=== PATIENT | male | born 1970 | race Caucasian/White ===

== ENCOUNTER 2016-08-08 22:29 | Emergency (ER) | payer OTHER ==
[2016-08-08] MEDS ORDERED: 0.9 % SODIUM CHLORIDE 1,000 ML IV ONE (22:45)
--- NOTE | 2016-08-08 23:18 | ED Physician Documentation ---
General Adult - HISTORIAN Historian: patient - HPI Stated Complaint: hearing voices, seeing objests Chief Complaint: General Adult Onset: days ago (1) Timing: still present Severity: moderate Further Comments: yes (Pt is a 46 yo male who c/o hearing voices. Pt was discharged from [facility] 2 days ago after admission there for alcohol withdrawal. Pt has not had alcohol for more than 7 days now. Pt reports hearing voices and seeing figures, halucinations. Pt has not had this problem of hearing voices for many years. Voices are mostly mumbling, but sometimes say "you'd be better off ." Pt is on a number of psychiatric meds: cymbalta, tegratol, haldol. Pt also has hx chronic pancreatitis and Diabetes Type 1.) - ROS CONST: no problems EYES/ENT: none CVS/RESP: none GI/: diarrhea, other (chronic abd pain) MS/SKIN/LYMPH: none NEURO/PSYCH: other (hearing voices) - PAST HX Past History: other (Hypothyroidism, Alcoholism, chronic pancreatitis, Depression, DM Type I, Esophagitis, HLD, HTN. Hx psychosis with audio hallucinations.) Allergies/Adverse Reactions: Allergies Allergy/AdvReac Type Severity Reaction Status Date / Time promethazine HCl Allergy Intermediate Hallucinati Verified 08/08/16 22:45 [From Phenergan] ons metoclopramide HCl Allergy Verified 08/08/16 22:45 [From Reglan] morphine Allergy Hives Verified 08/08/16 22:45 tramadol Allergy Anaphylaxis Verified 08/08/16 22:45 Home Medications: Ambulatory Orders Medication Instructions Recorded Insulin Glargine,Hum.rec.anlog 40 unit SQ HS 02/20/16 [Lantus Solostar] Insulin Lispro [Humalog] 7 unit SQ TID 02/20/16 Levothyroxine Sodium [Synthroid] 100 mcg PO D 02/20/16 Pantoprazole Sodium [Protonix] 40 mg PO BID 02/20/16 Lipase/Protease/Amylase [Pancreaze 3 each PO TID 04/30/16 4,[address]] Hydrocodone/Acetaminophen 1 each PO Q6 PRN #30 tablet 05/06/16 [Hydrocodon-Acetaminophen 5-325] Penicillin V Potassium [Pen V K] 500 mg PO QID #40 tablet 05/06/16 - SOCIAL HX Smoking History: cigarettes Alcohol Use: other (no alcohol for > 7 days) - FAMILY HX Family History: No - VITAL SIGNS Vital Signs: Vital Signs Temp Pulse Resp BP Pulse Ox 123 H 16 154/115 92 08/08/16 22:35 08/08/16 22:35 08/08/16 22:35 08/08/16 22:35 - REVIEWED ASSESSMENTS Nursing Assessment Reviewed: Yes Vitals Reviewed: Yes Progress - Progress Progress: U/A - neg UDS - non-negative for Benzodiazepines and for Oxycodone. Zofran 4 mg po Percocet (5/325) 2 tablets in ER Dilaudid 1 mg IM Zofran 4 mg po Dilaudid 0.5 mg IM Attempted to transfer to [facility] hospitalist, Dr. Rao. He said pt should go direct to Psychiatry. D/w Dr. Ludwig, [facility] Psych. He reviewed all the pt's data that we sent and said that pt is more appropiate for Medicine after all. Awaiting call back from medicine. Care transferred to Dr. Mckenzie at 0700. ED Results Lab/Radiology - Orders Orders: ED Orders Category Date Time Status Place Saline Lock/IV Now Care 08/08/16 22:45 Active AMYLASE Routine Lab 08/08/16 Ordered CBC/PLATELET/DIFF Routine Lab 08/08/16 Ordered CMP Routine Lab 08/08/16 Ordered ETHANOL MEDICAL USE ONLY Stat Lab 08/08/16 Ordered UA [URINALYSIS] Routine Lab 08/08/16 Ordered UDS [DRUG SCREEN URINE MEDICAL ONLY] Routine Lab 08/08/16 Ordered 0.9 % Sodium Chloride [Normal Saline] 1,000 ml Med 08/08/16 22:45 Active IV Q1H Chem Sticks Med 08/09/16 07:30 Ordered 1 each CHEMQ General Adult Physical Exam - PHYSICAL EXAM GENERAL APPEARANCE: moderate distress EENT: eye inspection normal, pharynx normal NECK: normal inspection, supple RESPIRATORY: no resp distress, chest non-tender, breath sounds normal CVS: reg rate & rhythm, heart sounds normal ABDOMEN: soft, normal bowel sounds, tenderness (mid abd tenderness, no guarding or rebound) BACK: normal inspection, no CVA tenderness SKIN: warm/dry, normal color EXTREMITIES: non-tender, normal range of motion NEURO: oriented X3, motor nml, sensation nml Discharge Clincal Impression: Auditory hallucinations Chronic pancreatitis Qualifiers: Pancreatitis type: alcohol induced Qualified Code(s): K86.0 - Alcohol-induced chronic pancreatitis Referrals: Primary Doctor,No [Primary Care Provider] - Home Medications: Ambulatory Orders Insulin Glargine,Hum.rec.anlog [Lantus Solostar] 40 unit SQ HS 02/20/16 Insulin Lispro [Humalog] 7 unit SQ TID 02/20/16 Levothyroxine Sodium [Synthroid] 100 mcg PO D 02/20/16 Pantoprazole Sodium [Protonix] 40 mg PO BID 02/20/16 Lipase/Protease/Amylase [Pancreaze 4,[address]] 3 each PO TID 04/30/16 Hydrocodone/Acetaminophen [Hydrocodon-Acetaminophen 5-325] 1 each PO Q6 PRN #30 tablet 05/06/16 Penicillin V Potassium [Pen V K] 500 mg PO QID #40 tablet 05/06/16 Condition: Stable Disposition: 02 XFER SHT-TRM HOSP Decision to Admit: NO Decision Time: 07:16
[2016-08-09] MEDS ORDERED: ONDANSETRON HCL 4 MG TAB.RAPDIS PO ONE ×2 (00:05→04:09)
[2016-08-09] MEDS ORDERED: oxyCODONE/ACETAMINOPHEN 5/325 TABLET PO ONE (00:06)
[2016-08-09 00:14] LABS: BASOPHILS % 0.5 (0.0-1.5); EOSINOPHILS % 1.3 % (0.0-6.8); LYMPHOCYTES # 1.8 # k/uL (0.6-4.0); MONOCYTES # 0.3 # k/uL (0.0-0.9); MONOCYTES % 5.4 % (0.0-11.0); NEUTROPHILS # 3.5 # k/uL (1.4-7.7)
[2016-08-09 00:15] LABS: MEAN CORPUSCULAR HEMOGLOBIN 30.5 pg (28.0-34.0)
[2016-08-09 00:34] LABS: eGFR (African) > 60; eGFR (Non-African) > 60
[2016-08-09] MEDS ORDERED: HYDROmorphone HCL/PF 1 MG/ML DISP.SYRIN IM ONE ×2 (01:31→04:10)
[2016-08-09 05:22] LABS: BARBITURATES NEGATIVE ng/mL (<300)
[2016-08-09 05:23] LABS: AMPHETAMINE NEGATIVE ng/mL (<1000); APPEARANCE,URINE CLEAR (CLEAR); CANNABINOIDS NEGATIVE ng/mL (<50); COCAINE NEGATIVE ng/mL (<150); COLOR,URINE YELLOW (YELLOW); METHAMPHETAMINE NEGATIVE ng/mL (<1000); METHYLENEDIOXYMETHAMPHETAMINE NEGATIVE ng/mL (<500); OCCULT BLOOD,URINE NEGATIVE (NEGATIVE); UROBILINOGEN URINE 0.2 Eu (0.2-1.0)
[2016-08-09 07:56] VITALS: BP 132/68
== END 2016-08-09 07:50 | disposition short-term general hospital (02) ==
LOC: ED 22:29
DX: R44.0 Auditory hallucinations (principal); K86.0 Alcohol-induced chronic pancreatitis; F17.210 Nicotine dependence, cigarettes, uncomplicated
CPT/HCPCS: 80053; 80320; 80365; 80377; 81002; 82150; 85025; A9270; J1170; 96372; 99284; G0480; G0481; G0482; S1016

== ENCOUNTER 2016-08-15 11:47 | Emergency (ER) | payer OTHER ==
[2016-08-15] MEDS ORDERED: ONDANSETRON HCL/PF 4 MG/ 2ML VIAL IVP ONE (12:08)
[2016-08-15] MEDS ORDERED: 0.9 % SODIUM CHLORIDE 500 ML IV ONE (12:12)
--- NOTE | 2016-08-15 12:20 | ED Physician Documentation ---
Abdominal Pain - HISTORIAN Historian: patient - HPI Stated Complaint: vomiting/diarrhea Chief Complaint: Abdominal Pain Onset: days ago (yesterday) Duration: constant Timing: still present Context: denies: out of country travel, bad food Severity: moderate Quality: pain Associated Symptoms: chills Exacerbated by: food Relieved by: nothing Further Comments: yes (46yo white male with a history of chronic abd pain. Has a histroy of substance abuse, pnacreastitis. DM type 2 not well controlled. Has started to have some chills, no fever yesterday. Has been having some bitlateral upper abd pain. Crampy/ achy in nature. Has developed some diarrhea, nausea and vomiting. No melena or hemateesis, hematachezia. Mouth has been dry has been urinating a lot. BS have been in the 200-300 range.) - ROS CONST: no problems CVS/RESP: none (chago bell) EYES/ENT: none MS/SKIN/LYMPH: none - SOCIAL HX Smoking History: less than 1 pack/day Alcohol Use: none Drug Use: none - FAMILY HX Family History: no significant history - PAST HX Past History: other (chronic panceatitis) Ischemic Bowel Risk Factors: none Other History: diabetes Type 2. denies: abdominal aneurysm, CVA, diabetes Type 1, fecal impaction Surgeries/Procedures: none Home Medications: Ambulatory Orders Medication Instructions Recorded Insulin Glargine,Hum.rec.anlog 40 unit SQ HS 02/20/16 [Lantus Solostar] Insulin Lispro [Humalog] 7 unit SQ TID 02/20/16 Levothyroxine Sodium [Synthroid] 100 mcg PO D 02/20/16 Pantoprazole Sodium [Protonix] 40 mg PO BID 02/20/16 Lipase/Protease/Amylase [Pancreaze 3 each PO TID 04/30/16 4,[address]] Hydrocodone/Acetaminophen 1 each PO Q6 PRN #30 tablet 05/06/16 [Hydrocodon-Acetaminophen 5-325] Penicillin V Potassium [Pen V K] 500 mg PO QID #40 tablet 05/06/16 Tramadol HCl [Ultram] 50 mg PO Q4 PRN #20 tablet 08/15/16 Allergies/Adverse Reactions: Allergies Allergy/AdvReac Type Severity Reaction Status Date / Time promethazine HCl Allergy Intermediate Hallucinati Verified 08/15/16 12:10 [From Phenergan] ons metoclopramide HCl Allergy Verified 08/15/16 12:10 [From Reglan] morphine Allergy Hives Verified 08/15/16 12:10 tramadol Allergy Anaphylaxis Verified 08/15/16 12:10 - VITAL SIGNS Vital Signs: Vital Signs Temp Pulse Resp BP Pulse Ox 97.2 F L 110 H 16 144/69 98 08/15/16 11:58 08/15/16 11:58 08/15/16 11:58 08/15/16 11:58 08/15/16 11:58 - REVIEWED ASSESSMENTS Nursing Assessment Reviewed: Yes Vitals Reviewed: Yes Progress - Progress Progress: 13:45 Patient states that he is still nauseated and still having pain in the upper abd area. 15:01 Patient states that nausea has improved but is still having some pain. Patient has not been able to give a urine specimen. Advised that I did not think it would be in his best interest to be started on strong narcotic pain meds because of his abuse in the past. Patient was wanting oxycodoe or hydrocodone. Patiet was advised that he will need to get these form his PCP if he felt that he needed them . He stated that his PCP is gone and has no back-up. ED Results Lab/Radiology - Lab Results Lab Results: Lab Results 08/15/16 08/15/16 08/15/16 12:50 12:50 12:50 WBC 6.40 K/ul K/ul (4.00-12.00) RBC 4.47 M/ul M/ul (3.90-5.20) Hgb 12.5 g/dL g/dL (12.0-18.0) Hct 37.6 % % (37.0-53.0) MCV 84.0 fl fl (80.0-100.0) MCH 28.0 pg pg (28.0-34.0) MCHC 33.3 g/dL g/dL (30.0-36.0) RDW 16.3 % H % (11.3-14.3) Plt Count 226 K/mm3 K/mm3 (130-400) Neut % (Auto) 79.6 % H % (39.0-79.0) Lymph % (Auto) 12.9 % L % (16.0-50.0) [place] % (Auto) 4.6 % % (0.0-11.0) Eos % (Auto) 1.3 % % (0.0-6.8) Baso % (Auto) 0.0 (0.0-1.5) Neut # 5.1 # k/uL # k/uL (1.4-7.7) Lymph # 0.8 # k/uL # k/uL (0.6-4.0) [place] # 0.3 # k/uL # k/uL (0.0-0.9) Eos # 0.1 # k/uL # k/uL (0.0-0.6) Baso # 0.0 # k/uL # k/uL (0.0-0.5) Reactive Lymphs % 1.5 % % (0.0-5.0) Reactive Lymphs # 0.1 # k/uL # k/uL (0.0-0.8) pH 7.65 H* (7.35-7.45) pCO2 23 mmhg L mmhg (35-45) pO2 83 mmhg mmhg (80-100) HCO3 25.3 Meq/L Meq/L (21-26) ABG O2 Sat Calc/Chanell 98 % % (93-100) ABG Base Excess 5.7 H (-2 - +2) Sodium 135 mmol/L L mmol/L (136-145) Potassium 2.9 mmol/L L mmol/L (3.5-5.0) Chloride 98 mmol/L mmol/L (98-110) Carbon Dioxide 25 mmol/L mmol/L (20-32) BUN 9 mg/dL L mg/dL (10-26) Creatinine 0.5 mg/dL mg/dL (0.4-1.5) Estimated Creat Clear 187 Est GFR ( Amer) > 60 (60 - ) Est GFR (Non-Af Amer) > 60 (60 - ) Glucose 106 mg/dL H mg/dL (70-99) Calcium 9.2 mg/dL mg/dL (8.5-10.5) Total Bilirubin 1.0 mg/dL mg/dL (0.2-1.2) AST 13 U/L U/L (0-41) ALT 21 U/L U/L (0-45) Alkaline Phosphatase 108 U/L U/L (46-116) Total Protein 6.8 g/dL g/dL (6.0-8.5) Albumin 4.4 g/dL g/dL (3.0-5.5) Amylase 35 U/L U/L (20-104) - Radiology Radiology Impressions: ABD x-ray, normal, no acute pathology noted - Orders Orders: ED Orders Category Date Time Status Arterial Blood Gas 1T Care 08/15/16 12:[address] Saline Lock/IV Now Care 08/15/16 12:09 Active ABD SERIES [ABD SERIES PA CHEST] [RAD] Stat Exams 08/15/16 Taken AMYLASE Routine Lab 08/15/16 12:50 Completed ARTERIAL BLOOD GAS Routine Lab 08/15/16 12:50 Completed CBC/PLATELET/DIFF Routine Lab 08/15/16 12:50 Completed CMP Routine Lab 08/15/16 12:50 Completed DRUG SCREEN URINE MEDICAL ONLY Routine Lab 08/15/16 Ordered URINALYSIS Routine Lab 08/15/16 Uncollected 0.9 % Sodium Chloride [Normal Saline] 500 ml Med 08/15/16 12:12 Discontinued IV NOW Chem Sticks Med 08/15/16 12:09 Discontinued 1 each MC NOW ONE Naproxen [Naprosyn] Med 08/15/16 13:20 Discontinued 250 mg PO NOW ONE Ondansetron HCl Rapdis [Zofran Odt] Med 08/15/16 13:19 Discontinued 4 mg PO NOW ONE Ondansetron HCl/Pf [Zofran 4 mg/2 ml] Med 08/15/16 13:46 Discontinued 4 mg IM NOW ONE Ondansetron HCl/Pf [Zofran 4 mg/2 ml] Med 08/15/16 12:08 Discontinued 4 mg IVP NOW ONE Pantoprazole Sodium [Protonix] Med 08/15/16 13:57 Discontinued 40 mg PO NOW ONE Abdominal Pain Physical Exam - Physical Exam General Appearance: alert, mild distress NECK: normal inspection, supple. No: lymphadenopathy RESPIRATORY: no resp distress, chest non-tender, breath sounds normal. No: wheezes, rales, rhonchi CVS: reg rate & rhythm, heart sounds normal, equal pulses, no murmur, no gallop ABDOMEN: soft, no organomegaly, normal bowel sounds, no distension, tenderness ( diffuse epigastric area tenderness) EXTREMITIES: non-tender, normal range of motion NEURO: oriented X3, CN's nml as tested, mood/affect nml, cognition normal Vital Signs: Vital Signs Temp Pulse Resp BP Pulse Ox 97.2 F L 110 H 16 144/69 98 08/15/16 11:58 08/15/16 11:58 08/15/16 11:58 08/15/16 11:58 08/15/16 11:58 Discharge Clincal Impression: Abdominal pain Qualifiers: Abdominal location: epigastric Qualified Code(s): R10.13 - Epigastric pain Prescriptions: Tramadol HCl [Ultram] 50 mg PO Q4 PRN #20 tablet PRN Reason: Pain Referrals: Primary Doctor,No [Primary Care Provider] - 2 Days Additional Instructions: To contact your primary care provider for further pain medication if needed. Take Tramadol as needed with food. Keep appointment to have endoscopy done. Home Medications: Ambulatory Orders Insulin Glargine,Hum.rec.anlog [Lantus Solostar] 40 unit SQ HS 02/20/16 Insulin Lispro [Humalog] 7 unit SQ TID 02/20/16 Levothyroxine Sodium [Synthroid] 100 mcg PO D 02/20/16 Pantoprazole Sodium [Protonix] 40 mg PO BID 02/20/16 Lipase/Protease/Amylase [Pancreaze 4,[address]] 3 each PO TID 04/30/16 Hydrocodone/Acetaminophen [Hydrocodon-Acetaminophen 5-325] 1 each PO Q6 PRN #30 tablet 05/06/16 Penicillin V Potassium [Pen V K] 500 mg PO QID #40 tablet 05/06/16 Tramadol HCl [Ultram] 50 mg PO Q4 PRN #20 tablet 08/15/16 Condition: Stable Disposition: 01 HOME, SELF-CARE Decision to Admit: NO Date of Decison to Admit: 08/15/16 Decision Time: 14:57
[2016-08-15 12:54] LABS: EOSINOPHILS % 1.3 % (0.0-6.8); LYMPHOCYTES # 0.8 # k/uL (0.6-4.0); MONOCYTES # 0.3 # k/uL (0.0-0.9); MONOCYTES % 4.6 % (0.0-11.0); NEUTROPHILS # 5.1 # k/uL (1.4-7.7)
[2016-08-15 13:14] LABS: eGFR (African) > 60; eGFR (Non-African) > 60
[2016-08-15] MEDS ORDERED: ONDANSETRON HCL 4 MG TAB.RAPDIS PO ONE (13:19)
[2016-08-15] MEDS ORDERED: NAPROXEN 250 MG TABLET PO ONE (13:20)
[2016-08-15] MEDS ORDERED: ONDANSETRON HCL/PF 4 MG/ 2ML VIAL IM ONE (13:46)
[2016-08-15] MEDS ORDERED: PANTOPRAZOLE SODIUM 40 MG TABLET PO ONE (13:57)
[2016-08-15 14:23] LABS: ABG BASE EXCESS 5.7 (-2 - +2); ABG PH 7.65 (7.35-7.45)
[2016-08-15 15:15] VITALS: BP 111/73
--- NOTE | 2016-08-15 15:52 | Diagnostic Imaging Report ---
JOSE CLEVELAND [facility] [address] [facility] [address] [address] Report Submission Date: Aug 15, 2016 3:17:02 PM CRUCIBLE PACKER Patient Study Name: WILMAN GARG Date: Aug 15, 2016 2:24:54 PM CRUCIBLE PACKER Modality Type: CR Gender: M Description: CHEST,ABDOMEN : 68 Institution: [facility] Physician: JOSE CLEVELAND Obstructive series with chest Clinical history abdominal pain Technique: Supine abdomen upright abdomen upright chest radiograph Findings: The bowel gas pattern is nonspecific. The lung babcock are hyperinflated but clear. There is a surgical clip in the right upper quadrant cholecystectomy. No abdominal masses identified. There is no free air. Impression: Nonspecific bowel gas pattern Hyperinflated lungs Cholecystectomy Electronically signed on Aug 15, 2016 3:17:02 PM CRUCIBLE PACKER by: Gary SCHULER
== END 2016-08-15 15:13 | disposition home or self-care (01) ==
LOC: ED 11:47
DX: R10.13 Epigastric pain (principal)
CPT/HCPCS: 36600; 74022; 80053; 82150; 82803; 85025; A9270; J2405; 96372; 96374; 99283; 99284; S1016

== ENCOUNTER 2018-06-13 15:31 | Emergency (ER) | payer OTHER ==
--- NOTE | 2018-06-13 15:34 | ED Physician Documentation ---
Sore Throat/Dental Pain - HISTORIAN Historian: patient - HPI Stated Complaint: dental pain Chief Complaint: Dental Pain Onset: days ago (3) Context: Foreign Body, Fractured Tooth Associated Symptoms: moderate. denies: fever, chills Worsened By: heat, cold Further Comments: yes (He states he knows all of his current teeth need to be pulled and yesterday he bit into an ice cream bar and his tooth broke. He has had pain since. Denies a fever. He has nausea from taking ibuprofen. He has zofran at home but states he knows from history compazine works better for him. He has pain 12/18 at this time) - ROS CONST: no problems CVS/RESP: denies: shortness of breath GI/: nausea. denies: vomiting MS/SKIN/LYMPH: denies: rash NEURO/PSYCH: headache - PAST HX Past History: other (DM, seizures, pancreatitis ) Other History: diabetes Type 2 Immunizations: UTD - SOCIAL HX Smoking History: quit less than 1 year Alcohol Use: sober Drug Use: none - FAMILY HX Family History: No - VITAL SIGNS Vital Signs: Vital Signs Temp Pulse Resp BP Pulse Ox 111/73 08/15/16 15:13 - REVIEWED ASSESSMENTS Nursing Assessment Reviewed: Yes Vitals Reviewed: Yes <Yamilka Parikh - Last Filed: 06/13/18 15:52> - VITAL SIGNS Vital Signs: Vital Signs Temp Pulse Resp BP Pulse Ox 98.2 F 74 18 142/93 98 06/13/18 16:01 06/13/18 16:01 06/13/18 16:01 06/13/18 16:01 06/13/18 16:01 <DALLIN FARMER - Last Filed: 06/13/18 17:06> - PAST HX Allergies/Adverse Reactions: Allergies Allergy/AdvReac Type Severity Reaction Status Date / Time promethazine HCl Allergy Intermediate Hallucinati Verified 06/13/18 15:46 [From Phenergan] ons metoclopramide HCl Allergy Verified 06/13/18 15:46 [From Reglan] morphine Allergy Hives Verified 06/13/18 15:46 tramadol Allergy Anaphylaxis Verified 06/13/18 15:46 Home Medications: Ambulatory Orders Medication Instructions Recorded Insulin Glargine,Hum.rec.anlog 40 unit SQ HS 02/20/16 [Lantus Solostar] Insulin Lispro [Humalog] 10 units SQ AC15 02/20/16 Levothyroxine Sodium [Synthroid] 100 mcg PO D 02/20/16 Pantoprazole Sodium [Protonix] 40 mg PO BID 02/20/16 Lipase/Protease/Amylase [Pancreaze 3 each PO TID 04/30/16 4,[address]] Hydrocodone/Acetaminophen 1 each PO Q6 PRN #30 tablet 05/06/16 [Hydrocodon-Acetaminophen 5-325] levETIRAcetam [Keppra] 500 mg PO BID 06/13/18 oxyCODONE HCL [OxyCONTIN] 20 mg PO BID 06/13/18 Progress - Progress Progress: Pharmacy, correctly, refused to fill script for percocet. Given script for hydrocodone 5/325 tabs #10. <DALLIN FARMER - Last Filed: 06/13/18 17:06> ED Results Lab/Radiology - Orders Orders: ED Orders Category Date Time Status oxyCODONE HCL/ACETAMINOPHEN [Percocet 5-325 mg Tablet] Med 06/13/18 15:48 Discontinued 1 each PO NOW ONE <DALLIN FARMER - Last Filed: 06/13/18 17:06> Dental Pain Physical Exam - EXAM General Appearance: no acute distress, alert Head/Neck: head nml inspection. No: pain over sinuses Eyes: eyes nml inspection, PERRL Mouth/Throat: lips nml, no air way problems, gum swelling around teeth, widespr ead dental decay Ear/Nose: nml inspection Respiratory: no resp. distress, breath sounds nml CVS: reg. rate & rhythm, heart sounds nml Abdomen: soft, normal bowel sounds Extremities: non-tender Skin: warm/dry Neuro/Psych: none <Yamilka Parikh - Last Filed: 06/13/18 15:52> Discharge Decision to Admit: NO Date of Decison to Admit: 06/13/18 Decision Time: 15:59 <Yamilka Parikh - Last Filed: 06/13/18 15:52> <DALLIN FARMER - Last Filed: 06/13/18 17:06> Clincal Impression: Pain, dental Referrals: Primary Doctor,No [Primary Care Provider] - 2 Days Additional Instructions: 1. Compazine 10 mg take 1 by mouth every 8 hours as needed for nausea 2. Percocet 5/325 take 1 by mouth every 8 hours as needed for pain 3. MILD use of ibuprofen 4. Amoxicillin 875 mg take 1 by mouth twice daily x10 days 5. Warm salt water gargles 6. Follow up with dentist ROBIN 7. Return to ER for any concern Condition: Stable Disposition: 01 HOME, SELF-CARE
[2018-06-13] MEDS ORDERED: oxyCODONE/ACETAMINOPHEN 5/325 TABLET PO ONE (15:48)
[2018-06-13 16:03] VITALS: BP 142/93
== END 2018-06-13 16:01 | disposition home or self-care (01) ==
LOC: ED 15:31
DX: K08.89 Other specified disorders of teeth and supporting structures (principal); Z87.891 Personal history of nicotine dependence
CPT/HCPCS: 99282; 99283; A9270

== ENCOUNTER 2018-06-16 16:22 | Emergency (ER) | payer OTHER ==
--- NOTE | 2018-06-16 16:33 | ED Physician Documentation ---
General Adult - HISTORIAN Historian: patient - HPI Stated Complaint: elevated blood sugar Chief Complaint: General Adult Onset: days ago (2) Timing: still present Severity: moderate Further Comments: yes (Per mom he has had no food or drink intake for two days maybe 4 days. He reports he did not take his inuslin x 2 days at least> He reports any significant complaints. No fever noted. No other complaints. He has some nausea. No vomiting per his report.) Last known Well Code/Unknown Code: Unknown - ROS CONST: weakness. denies: fever, sweating, recent illness EYES/ENT: denies: problems with vision, sore throat, nasal drainage CVS/RESP: denies: chest pain, shortness of breath, cough GI/: nausea MS/SKIN/LYMPH: denies: rash NEURO/PSYCH: headache. denies: dizziness - PAST HX Past History: hypertension Other History: diabetes Type 1 Immunizations: UTD Allergies/Adverse Reactions: Allergies Allergy/AdvReac Type Severity Reaction Status Date / Time promethazine HCl Allergy Intermediate Hallucinati Verified 06/13/18 15:46 [From Phenergan] ons metoclopramide HCl Allergy Verified 06/13/18 15:46 [From Reglan] morphine Allergy Hives Verified 06/13/18 15:46 tramadol Allergy Anaphylaxis Verified 06/13/18 15:46 Home Medications: Ambulatory Orders Medication Instructions Recorded Insulin Glargine,Hum.rec.anlog 40 unit SQ HS 02/20/16 [Lantus Solostar] Insulin Lispro [Humalog] 10 units SQ AC15 02/20/16 Levothyroxine Sodium [Synthroid] 100 mcg PO D 02/20/16 Pantoprazole Sodium [Protonix] 40 mg PO BID 02/20/16 Lipase/Protease/Amylase [Pancreaze 3 each PO TID 04/30/16 4,[address]] Hydrocodone/Acetaminophen 1 each PO Q6 PRN #30 tablet 05/06/16 [Hydrocodon-Acetaminophen 5-325] levETIRAcetam [Keppra] 500 mg PO BID 06/13/18 oxyCODONE HCL [OxyCONTIN] 20 mg PO BID 06/13/18 - SOCIAL HX Smoking History: cigarettes Alcohol Use: heavy Drug Use: other (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 Pt continues to be awake and alert. Now denies any nausea. He states he is "ok" Denies any specific complaints or pain DG 1750: Radha at [facility] called for transfer DG 1800: Physician in a procedure and will return call DG 1820: Radha notified of UA results DG 1830: blood sugar was 452 per bedside monitor. He states he is "ok" denies any nausea or pain. Awake alert. Lungs clear HRR DG 1839: Dr Socrates Ornelas is accepting DG ED Results Lab/Radiology - Radiology Radiology Impressions: Portable view chest Clinical history: Altered mental status Findings: The heart size is normal. The pulmonary vasculature is normal. No pleural effusion, pneumothorax or alveolar consolidation. Impression: Negative Electronically signed on Jun 16, 2018 5:27:43 PM OCCUPATIONAL PSYCHOLOGIST by: Gilberto Tsai General Adult Physical Exam - PHYSICAL EXAM GENERAL APPEARANCE: no distress EENT: eye inspection normal, ENT inspection normal, pharynx normal, dry mucous membranes NECK: normal inspection RESPIRATORY: no resp distress, chest non-tender, breath sounds normal, other (shallow resp ) CVS: reg rate & rhythm, heart sounds normal ABDOMEN: soft, no distension, non-tender, abnormal bowel sounds (hypoactive ) BACK: normal inspection, no CVA tenderness SKIN: warm/dry, other (skin appears to be dell. He states he did use a sunless arnel on face and upper arms (this is removable) ) EXTREMITIES: non-tender, normal range of motion NEURO: oriented X3 Discharge Clincal Impression: Hyperglycemia Chronic pancreatitis Qualifiers: Pancreatitis type: unspecified pancreatitis type Qualified Code(s): K86.1 - Other chronic pancreatitis Referrals: Primary Doctor,No [Primary Care Provider] - 2 Days Comments: Dr Socrates Ornelas accepting Disposition: XFER SHT-TRM HOSP Decision to Admit: NO Date of Decison to Admit: 06/16/18 Decision Time: 18:41
[2018-06-16] MEDS ORDERED: 0.9 % SODIUM CHLORIDE 1,000 ML IV ONE ×2 (16:37→18:01)
[2018-06-16] MEDS ORDERED: INSULIN REGULAR, HUMAN 100 UNIT/ML 3ML VIAL IV ONE ×2 (16:43→17:23)
[2018-06-16] MEDS ORDERED: ONDANSETRON HCL/PF 4 MG/ 2ML VIAL IVP ONE (16:52)
[2018-06-16] MEDS ORDERED: ONDANSETRON HCL/PF 4 MG/ 2ML VIAL ONE (16:53)
--- NOTE | 2018-06-16 17:54 | Diagnostic Imaging Report ---
CHANTALE ABBASI [facility] [address] [facility] [address] [address] Report Submission Date: Jun 16, 2018 5:27:43 PM COPY COORDINATOR Patient Study Name: WILMAN GARG Date: Jun 16, 2018 5:02:10 PM COPY COORDINATOR Modality Type: DX Gender: M Description: CHEST : 68 Institution: [facility] Physician: CHANTALE ABBASI Portable view chest Clinical history: Altered mental status Findings: The heart size is normal. The pulmonary vasculature is normal. No pleural effusion, pneumothorax or alveolar consolidation. Impression: Negative Electronically signed on Jun 16, 2018 5:27:43 PM COPY COORDINATOR by: Gilberto SCHULER
[2018-06-16 19:06] VITALS: BP 141/90
[2018-06-17 07:15] LABS: eGFR (Non-African) 53
[2018-06-17 07:18] LABS: BASOPHILS % 1.3 (0.0-1.5); EOSINOPHILS % 1.1 % (0.0-6.8); MONOCYTES % 7.5 % (0.0-11.0); NEUTROPHILS # 18.1 # k/uL (1.4-7.7)
[2018-06-18 07:29] LABS: ABG PH 7.39 (7.35-7.45)
[2018-06-18 07:30] LABS: ABG BASE EXCESS -12.4 (-2 - +2)
== END 2018-06-16 19:03 | disposition short-term general hospital (02) ==
LOC: ED 16:22
DX: E10.65 Type 1 diabetes mellitus with hyperglycemia (principal); K86.1 Other chronic pancreatitis; Z79.4 Long term (current) use of insulin
CPT/HCPCS: 36415; 36600; 71045; 80053; 80320; 82803; 83605; 83690; 85025; 87040; 93005; 96365; 96375; 99285; J1815; J2405; J7030; G0480; S1016

== ENCOUNTER 2018-12-23 12:00 | Emergency (ER) | payer MEDICARE, OTHER ==
[2018-12-23] MEDS ORDERED: 0.9 % SODIUM CHLORIDE 1,000 ML IV ONE ×2 (12:28→12:29)
[2018-12-23] MEDS ORDERED: PANTOPRAZOLE SODIUM 80 MG in 0.9 % SODIUM CHLORIDE 50 ML IV ONE (12:28)
[2018-12-23 12:46] LABS: BASOPHILS % 0.5 % (0.0-1.5); NEUTROPHILS # 6.5 # k/uL (1.4-7.7)
[2018-12-23 12:57] LABS: eGFR (Non-African) > 60
[2018-12-23] MEDS ORDERED: POTASSIUM CHLORIDE 40 MEQ/NS 1,000 ML IV ONE (13:13)
[2018-12-23] MEDS ORDERED: fentaNYL CITRATE/PF 100 MCG/2 ML INJ. IVP ONE (14:23)
--- NOTE | 2018-12-23 14:26 | ED Physician Documentation ---
Abdominal Pain - HISTORIAN Historian: patient - HPI Stated Complaint: n/v/d Chief Complaint: Abdominal Pain Onset: days ago (2 days ago) Duration: waxing, waning Timing: worse Context: denies: out of country travel, bad food, recent trauma Severity: severe Quality: pain Associated Symptoms: nausea, vomiting, bloody emesis. denies: bloody stools Exacerbated by: nothing Relieved by: nothing Further Comments: yes (48 year old male patient brought in via EMS with reports of bloody emesis x 48 hours. Patient reports vomiting 12 times over the past 24 hours. Complains of epigastric and LUQ pain. Reports multiple episodes of diarrhea. Patient lives at the [facility].) - ROS CONST: no problems GI/: denies: constipation, black stools, bloody urine, bloody stools, problems urinating CVS/RESP: none EYES/ENT: none MS/SKIN/LYMPH: none NEURO/PSYCH: none - SOCIAL HX Smoking History: cigarettes Alcohol Use: other (history of severe abuse; clean 4 years) - FAMILY HX Family History: denies: none - PAST HX Past History: pancreatitis, other (De La Fuente's esophagus) Other History: diabetes Type 2, other (Hx of DKA, seizures, Parkinson's) Home Medications: Ambulatory Orders Medication Instructions Recorded Insulin Glargine,Hum.rec.anlog 40 unit SQ HS 02/20/16 [Lantus Solostar] Insulin Lispro [Humalog] 10 units SQ AC15 02/20/16 Levothyroxine Sodium [Synthroid] 200 mcg PO D 02/20/16 Pantoprazole Sodium [Protonix] 40 mg PO BID 02/20/16 Lipase/Protease/Amylase [Pancreaze 3 each PO TID 04/30/16 4,[address]] Hydrocodone/Acetaminophen 1 each PO Q6 PRN #30 tablet 05/06/16 [Hydrocodon-Acetaminophen 5-325] levETIRAcetam [Keppra] 500 mg PO BID 06/13/18 Pimavanserin Tartrate [Nuplazid] 12/23/18 Pregabalin [Lyrica] 25 mg PO 12/23/18 Allergies/Adverse Reactions: Allergies Allergy/AdvReac Type Severity Reaction Status Date / Time promethazine HCl Allergy Intermediate Hallucinati Verified 12/23/18 12:13 [From Phenergan] ons metoclopramide HCl Allergy Verified 12/23/18 12:13 [From Reglan] morphine Allergy Hives Verified 12/23/18 12:13 tramadol Allergy Anaphylaxis Verified 12/23/18 12:13 - VITAL SIGNS Vital Signs: Vital Signs Temp Pulse Resp BP Pulse Ox 98.0 F 102 H 18 132/91 100 12/23/18 12:00 12/23/18 13:30 12/23/18 12:00 12/23/18 12:00 12/23/18 13:30 - REVIEWED ASSESSMENTS Nursing Assessment Reviewed: Yes Vitals Reviewed: Yes Progress - Progress Progress: Patient requesting transfer to [facility]. [address] [facility], patient accepted by Dr Coates. ED Results Lab/Radiology - Lab Results Lab Results: Lab Results 12/23/18 12/23/18 12/23/18 Unknown Unknown 12:28 WBC RBC Hgb Hct MCV MCH MCHC RDW Plt Count Neut % (Auto) Lymph % (Auto) [place] % (Auto) Eos % (Auto) Baso % (Auto) Neut # (Auto) Lymph # (Auto) [place] # (Auto) Eos # (Auto) Baso # (Auto) PT 10.7 Seconds Seconds (8.8-11.9) INR 1.03 (0.80-1.10) Sodium 128 mmol/L L mmol/L (137-145) Potassium 2.7 mmol/L L mmol/L (3.5-5.1) Chloride 81 mmol/L L mmol/L (98-107) Carbon Dioxide 32 mmol/L H mmol/L (22-30) BUN 25 mg/dL H mg/dL (9-20) Creatinine 0.83 mg/dL mg/dL (0.66-1.25) Estimated Creat Clear 103 Est GFR ( Amer) > 60 (60 - ) Est GFR (Non-Af Amer) > 60 (60 - ) Glucose 156 mg/dL H mg/dL (74-106) Calcium 9.1 mg/dL mg/dL (8.4-10.2) Total Bilirubin 1.4 mg/dL H mg/dL (0.2-1.3) AST 28 U/L U/L (15-46) ALT 178 U/L H U/L (13-69) Alkaline Phosphatase 246 U/L H U/L (38-126) Total Protein 7.1 g/dL g/dL (6.3-8.2) Albumin 4.6 g/dL g/dL (3.5-5.0) Lipase 71 U/L U/L (23-300) Ethyl Alcohol < 10.0 mg/dL mg/dL (0.0-10.0) 12/23/18 12:27 WBC 9.40 K/ul K/ul (4.00-12.00) RBC 5.74 M/ul H M/ul (3.90-5.20) Hgb 16.2 g/dL g/dL (12.0-18.0) Hct 48.8 % % (37.0-53.0) MCV 85.0 fl fl (80.0-100.0) MCH 28.2 pg pg (28.0-34.0) MCHC 33.2 g/dL g/dL (30.0-36.0) RDW 19.1 % H % (11.3-14.3) Plt Count 261 K/mm3 K/mm3 (130-400) Neut % (Auto) 69.1 % % (39.0-79.0) Lymph % (Auto) 22.3 % % (16.0-50.0) [place] % (Auto) 7.3 % % (0.0-11.0) Eos % (Auto) 0.8 % % (0.0-6.8) Baso % (Auto) 0.5 % % (0.0-1.5) Neut # (Auto) 6.5 # k/uL # k/uL (1.4-7.7) Lymph # (Auto) 2.1 # k/uL # k/uL (0.6-4.0) [place] # (Auto) 0.7 # k/uL # k/uL (0.0-0.9) Eos # (Auto) 0.1 # k/uL # k/uL (0.0-0.6) Baso # (Auto) 0.1 # k/uL # k/uL (0.0-0.5) PT INR Sodium Potassium Chloride Carbon Dioxide BUN Creatinine Estimated Creat Clear Est GFR ( Amer) Est GFR (Non-Af Amer) Glucose Calcium Total Bilirubin AST ALT Alkaline Phosphatase Total Protein Albumin Lipase Ethyl Alcohol - Radiology Radiology Impressions: Examination: CT Abdomen/pelvis History: LUQ PAIN, ELEVATED LFT Comparison exams: None available Technique: CT Abdomen/pelvis without IV protocol. Findings: Liver, spleen, adrenals, pancreas and kidneys are without gross irregularity given exam technique. Surgical clips gallbladder fossa. No suspicious renal calcifications. Ureters are nondilated in their course through the abdomen and pelvis. No central calcifications. Bladder margin within normal limits. Abdominal aorta without aneurysm. Peripheral atherosclerotic disease. Cardiac silhouette is not enlarged. Small anterior pericardial effusion. Diffuse small bowel mucosal prominence associated with scattered air-fluid levels. Stool and fluid within the large bowel. No free fluid within the abdomen. Hiatal hernia. Osseous structures demonstrate L5/S1 degenerative changes. Lung bases without infiltrate. No effusion. Impression: Diffuse small bowel mucosal thickening with air-fluid levels consistent with diffuse gastroenteritis. Possible coexistent colitis. No acute upper abdominal organ inflammatory process. Hiatal hernia. No suspicious renal calcifications or abnormal ureteric dilation. Small anterior pericardial effusion. No lung base consolidation or effusion. Electronically signed on Dec 23, 2018 3:28:18 PM CDT by: Justin Lazaro - Orders Orders: ED Orders Category Date Time Status Continuous EKG monitoring Q30M Care 12/23/18 12:27 Active Continuous Pulse Oximetry Q30M Care 12/23/18 12:[address] IV Lock 1T Care 12/23/18 12:[address] ABD & PELVIS W/ CON Stat Exams 12/23/18 Taken ALCOHOL MEDICAL USE ONLY Stat Lab 12/23/18 Completed ARTERIAL BLOOD GAS Stat Lab 12/23/18 13:44 Ordered CBC/PLATELET/DIFF Stat Lab 12/23/18 12:27 Completed CMP Stat Lab 12/23/18 Completed LIPASE Stat Lab 12/23/18 Completed PT-INR Stat Lab 12/23/18 12:28 Completed Urine drug screen [DRUG SCREEN URINE MEDICAL ONLY] Stat Lab 12/23/18 13:18 Ordered 0.9 % Sodium Chloride [Normal Saline] 1,000 ml Med 12/23/18 12:28 Discontinued IV NOW 0.9 % Sodium Chloride [Normal Saline] 1,000 ml Med 12/23/18 12:29 Discontinued IV NOW Ondansetron HCl/Pf [Zofran] Med 12/23/18 14:30 Discontinued 4 mg IVP NOW ONE Pantoprazole Sodium [Protonix] 80 mg Med 12/23/18 12:28 Active 0.9 % Sodium Chloride [Normal Saline] 50 ml IV NOW Potassium Chloride 40 Meq/Ns [KCL 40 MEQ in NS 1000 ML] Med 12/23/18 13:13 Active 1,000 ml IV ONCE fentaNYL CITRATE/PF [Sublimaze] Med 12/23/18 14:23 Discontinued 100 mcg IVP NOW ONE Abdominal Pain Physical Exam - Physical Exam General Appearance: mild distress EENT: eye inspection normal, MADDIE NECK: normal inspection RESPIRATORY: no resp distress, chest non-tender, breath sounds normal CVS: reg rate & rhythm, heart sounds normal, equal pulses, no murmur, no gallop, PMI nml, no JVD, no friction rub, 24 ABDOMEN: soft, no organomegaly, tenderness (epigastric and LUQ), decreased BS. No: McBurney's point tenderne, psoas, obturator sign BACK: normal inspection, no CVA tenderness SKIN: normal color, warm/dry, NR, INT, PAL, DR EXTREMITIES: non-tender, normal range of motion, no evidence of injury, no edema , J, [employer] NEURO: oriented X3, motor nml, sensation nml Vital Signs: Vital Signs Temp Pulse Resp BP Pulse Ox 98.0 F 102 H 18 132/91 100 12/23/18 12:00 12/23/18 13:30 12/23/18 12:00 12/23/18 12:00 12/23/18 13:30 Discharge Clincal Impression: Hypokalemia, Hyponatremia, Gastroenteritis Referrals: Dylan Knowles DO [Primary Care Provider] - 2 Days Condition: Stable Disposition: 02 XFER S[facility]-TRM HOSP Decision to Admit: NO Decision Time: 15:46
[2018-12-23] MEDS ORDERED: ONDANSETRON HCL/PF 4 MG/ 2ML VIAL IVP ONE (14:30)
--- NOTE | 2018-12-23 15:46 | Diagnostic Imaging Report ---
LUISANA MICHELLE (VISUAL C DEVELOPER) - ER [facility] [address] [facility].[address] [id number] Report Submission Date: Dec 23, 2018 3:28:18 PM CDT Patient Study Name: WILMAN GARG Date: Dec 23, 2018 2:35:21 PM CDT Modality Type: CT\SR Gender: M Description: CT ABD/PELV W/CON : 68 Institution: [facility] Physician: LUISANA MICHELLE (VISUAL C DEVELOPER) - ER Examination: CT Abdomen/pelvis History: LUQ PAIN, ELEVATED LFT Comparison exams: None available Technique: CT Abdomen/pelvis without IV protocol. Findings: Liver, spleen, adrenals, pancreas and kidneys are without gross irregularity given exam technique. Surgical clips gallbladder fossa. No suspicious renal calcifications. Ureters are nondilated in their course through the abdomen and pelvis. No central calcifications. Bladder margin within normal limits. Abdominal aorta without aneurysm. Peripheral atherosclerotic disease. Cardiac silhouette is not enlarged. Small anterior pericardial effusion. Diffuse small bowel mucosal prominence associated with scattered air-fluid levels. Stool and fluid within the large bowel. No free fluid within the abdomen. Hiatal hernia. Osseous structures demonstrate L5/S1 degenerative changes. Lung bases without infiltrate. No effusion. Impression: Diffuse small bowel mucosal thickening with air-fluid levels consistent with diffuse gastroenteritis. Possible coexistent colitis. No acute upper abdominal organ inflammatory process. Hiatal hernia. No suspicious renal calcifications or abnormal ureteric dilation. Small anterior pericardial effusion. No lung base consolidation or effusion. Electronically signed on Dec 23, 2018 3:28:18 PM CDT by: Justin SCHULER
[2018-12-23 16:21] VITALS: BP 136/88
== END 2018-12-23 16:18 | disposition short-term general hospital (02) ==
LOC: ED 12:00
DX: E87.6 Hypokalemia (principal); E87.1 Hypo-osmolality and hyponatremia; K52.9 Noninfective gastroenteritis and colitis, unspecified
CPT/HCPCS: 36600; 74177; 80053; 82803; 83690; 85025; 85610; 96361; 96374; 96375; 99283; 99284; G0480; J2405; J3010; J3480; J7030; Q9967; 80320; S1016